=== PATIENT | female | born 1960 | race Caucasian/White ===

== ENCOUNTER 2018-07-10 18:12 | Outpatient (REF) | payer SELFPAY ==
[2018-07-10 18:51] LABS: TSH (W/Ref FT4) 27.37 uIU/mL (0.358-3.74)
[2018-07-10 19:26] LABS: FREE T4 1.05 ng/dL (0.76-1.46)
== END 2018-07-10 18:32 ==
LOC: NCHCN 18:12
PROVIDERS: PCP Family Medicine; Visit Provider Family Medicine
DX: E03.9 Hypothyroidism, unspecified (principal); Z85.850 Personal history of malignant neoplasm of thyroid
CPT/HCPCS: 84439; 84443

== ENCOUNTER 2019-07-11 16:16 | Outpatient (REF) | payer SELFPAY ==
[2019-07-11 19:44] LABS: Hemoglobin A1C 6.2 % (3.8-5.6)
[2019-07-11 19:54] LABS: Anion Gap 8.3 mmol/L (3-11); BUN 17 mg/dL (7-18); CO2 30.7 mmol/L (21.0-32.0); CREATININE 0.88 mg/dL (0.55-1.02); Calcium 8.7 mg/dL (8.5-10.1); Chloride 105 mmol/L (98-107); Glucose 90 mg/dL (74-106); Potassium 3.9 mmol/L (3.5-5.1); Sodium 144 mmol/L (136-145); TSH (W/Ref FT4) 3.68 uIU/mL (0.36-3.74)
== END 2019-07-11 16:36 ==
LOC: NCHCN 16:16
PROVIDERS: PCP Family Medicine; Visit Provider Family Medicine
DX: E03.9 Hypothyroidism, unspecified (principal); I10 Essential (primary) hypertension
CPT/HCPCS: 80048; 83036; 84443

== ENCOUNTER 2020-07-17 16:03 | Outpatient (REF) | payer SELFPAY ==
[2020-07-17 16:05] LABS: Hemoglobin A1C 5.8 % (<5.7)
[2020-07-17 16:28] LABS: BUN 16 mg/dL (7-18); CREATININE 0.8 mg/dL (0.55-1.02); Calcium 8.3 mg/dL (8.5-10.1); Chloride 103 mmol/L (98-107); Glucose 105 mg/dL (74-106); Potassium 3.9 mmol/L (3.5-5.1); Sodium 140 mmol/L (136-145); TSH (W/Ref FT4) 0.14 uIU/mL (0.36-3.74)
[2020-07-17 16:56] LABS: FREE T4 1.84 ng/dL (0.76-1.46)
== END 2020-07-17 16:04 | disposition home or self-care (01) ==
LOC: NCHCN 16:03
PROVIDERS: PCP Family Medicine; Visit Provider Family Medicine
DX: E03.9 Hypothyroidism, unspecified (principal); I10 Essential (primary) hypertension; Z13.1 Encounter for screening for diabetes mellitus
CPT/HCPCS: 80048; 83036; 84439; 84443

== ENCOUNTER 2020-09-29 15:23 | Outpatient (REF) | payer SELFPAY ==
[2020-09-29 19:35] LABS: TSH (W/Ref FT4) 9.13 uIU/mL (0.36-3.74)
[2020-09-29 20:11] LABS: FREE T4 0.82 ng/dL (0.76-1.46)
== END 2020-09-29 15:24 | disposition home or self-care (01) ==
LOC: NCHCN 15:23
PROVIDERS: PCP Family Medicine; Visit Provider Family Medicine
DX: E03.9 Hypothyroidism, unspecified (principal)
CPT/HCPCS: 84439; 84443

== ENCOUNTER 2022-08-12 09:45 | Outpatient (REF) | payer BC, SELFPAY ==
--- NOTE | 2022-08-12 08:15 | PAPFT_PTH ---
PATIENT: Petra Seay I LOC: [facility]#:[id number] AGE/SX: 62/F ROOM: RE08/12/[address]: Elly Tong : 1960 BED: DIS: 08/12/2022 SPEC #: [id number] RECD: 08/12/22 18:09 STATUS: GERALD REChris #: [id number] APARNA: 08/12/22 08:[address]: Elly Tong DEPT: [facility] Cytology RECD BY: Noy Aquino Tissues: 1 - CX/ENDOCX FOR PAP SMEARS Procedures: PAP THIN PREP/UVM Screening HPV DNA PROBE Comments: [id number]
[2022-08-13 10:27] LABS: Hemoglobin A1C 6.1 % (<5.7)
[2022-08-13 10:33] LABS: ALT 43 U/L (14-59); AST 32 U/L (15-37); Albumin 4.3 g/dL (3.4-5.0); Alkaline Phosphatase 87 U/L (46-116); Anion Gap 7.7 mmol/L (3-11); BUN 18 mg/dL (7-18); Bilirubin, Total 1.4 mg/dL (0.2-1.0); CO2 31.3 mmol/L (21.0-32.0); CREATININE 1.1 mg/dL (0.55-1.02); Calcium 7.8 mg/dL (8.5-10.1); Calculated LDL 223 mg/dL (<100); Chloride 102 mmol/L (98-107); Cholesterol 315 mg/dL (<200); Estimated GFR 57.52 (mL/min/1.73m2); Glucose 108 mg/dL (74-106); HDL Cholesterol 65 mg/dL (40-60); Potassium 3.7 mmol/L (3.5-5.1); Sodium 141 mmol/L (136-145); TSH (W/Ref FT4) 37.74 uIU/mL (0.36-3.74); Total Protein 7.9 g/dL (6.4-8.2); Triglyceride 137 mg/dL (<150)
[2022-08-13 11:01] LABS: FREE T4 2.07 ng/dL (0.76-1.46)
[2022-08-13 20:41] LABS: Thyroglobulin Antibody 16 U/mL (<=60)
== END 2022-08-12 09:46 | disposition home or self-care (01) ==
LOC: NCHCN 09:45
PROVIDERS: PCP Family Medicine; Visit Provider Family Medicine
DX: E03.9 Hypothyroidism, unspecified (principal); Z85.850 Personal history of malignant neoplasm of thyroid; E55.9 Vitamin D deficiency, unspecified; I10 Essential (primary) hypertension; R73.03 Prediabetes; Z12.4 Encounter for screening for malignant neoplasm of cervix; Z11.51 Encounter for screening for human papillomavirus (HPV)
CPT/HCPCS: 80053; 80061; 82306; 88142; 83036; 84439; 84443; 86800; 87624

== ENCOUNTER 2022-08-27 01:06 | Outpatient (CLI) | payer BC, SELFPAY ==
--- NOTE | 2022-08-27 12:30 | DI.RAD_ITS ---
Exam(s) XR ANKLE LT COMPLETE EXAM: XR ANKLE LT COMPLETE CLINICAL HISTORY: LT ANKLE JT PAIN, M25.572 TECHNIQUE: 2D digital imaging was performed. Three views. COMPARISON: CR RIGHT ANKLE COMPLETE from 05/22/2013 FINDINGS: BONES: No acute fracture is present. No bony destructive lesion is seen. JOINTS:Narrowing of the to the tibial talar joint space. Prominent spur from the medial malleolus. Mild spurring talofibular joint. SOFT TISSUE: Mild swelling. IMPRESSION: Degenerative changes at the ankle joint. DATA REPOSITORY: RADIATION DOSE DELIVERED:
--- NOTE | 2022-08-27 12:45 | DI.MAMMO_ITS ---
Exam(s) MAMMO SCREENING EXAM: MAMMO SCREENING 2012 through 2018 CLINICAL HISTORY: SCREENING, Z12.31 TECHNIQUE: Mammograms were interpreted according to the usual protocol including computer analysis w ith CAD system, tomosynthesis and C-view imaging. COMPARISON: 2012 through 2017 FINDINGS: The breasts are composed of scattered fibroglandular densities, Breast Density category B. No suspicious masses or suspicious microcalcifications are seen. No skin thickening or abnormal axillary lymph nodes are seen. There has been no significant change from prior exams. IMPRESSION: BI-RADS Category 1, Negative mammogram Yearly screening mammography is recommended. Breast Density - Category B, scattered fibroglandular densities. A negative radiographic report should not delay biopsy if a dominant or clinically suspicious mass is present. Up to ten percent of cancers are not identified on mammography. A negative report may reinforce clinical impression. Adenosis and dense breasts may obscure an underlying neoplasm. False positive reports average 6 to 10%. Patient will receive a letter notifying them of these results.
== END 2022-08-27 01:26 ==
PROVIDERS: PCP Family Medicine; Visit Provider Family Medicine
DX: Z12.31 Encounter for screening mammogram for malignant neoplasm of breast (principal); M25.572 Pain in left ankle and joints of left foot; M77.52 Other enthesopathy of left foot and ankle; M19.072 Primary osteoarthritis, left ankle and foot
CPT/HCPCS: 77063; 77067; 73610

== ENCOUNTER 2022-11-03 10:54 | Outpatient (REF) | payer BC, SELFPAY ==
[2022-11-03 17:00] LABS: Anion Gap 11.7 mmol/L (3-11); BUN 14 mg/dL (7-18); CO2 25.3 mmol/L (21.0-32.0); CREATININE 0.7 mg/dL (0.55-1.02); Calcium 8.6 mg/dL (8.5-10.1); Chloride 105 mmol/L (98-107); Estimated GFR 98.95 (mL/min/1.73m2); Glucose 123 mg/dL (74-106); Potassium 3.8 mmol/L (3.5-5.1); Sodium 142 mmol/L (136-145); TSH (W/Ref FT4) 0.01 uIU/mL (0.36-3.74)
[2022-11-03 17:08] LABS: Vitamin D 25 Total 53.6 ng/mL (30-100)
[2022-11-03 17:17] LABS: FREE T4 2.67 ng/dL (0.76-1.46)
== END 2022-11-03 10:55 | disposition home or self-care (01) ==
LOC: NCHCN 10:54
PROVIDERS: PCP Family Medicine; Visit Provider Family Medicine
DX: I10 Essential (primary) hypertension (principal); E03.9 Hypothyroidism, unspecified; E83.51 Hypocalcemia; E55.9 Vitamin D deficiency, unspecified
CPT/HCPCS: 80048; 82306; 82088; 84100; 84244; 84439; 84443

== ENCOUNTER 2023-01-12 12:56 | Outpatient (REF) | payer BC, SELFPAY ==
[2023-01-12 16:25] LABS: AST 16 U/L (15-37); Anion Gap 12.2 mmol/L (3-11); BUN 18 mg/dL (7-18); CO2 25.8 mmol/L (21.0-32.0); CREATININE 0.8 mg/dL (0.55-1.02); Calculated LDL 76 mg/dL (<100); Chloride 106 mmol/L (98-107); Cholesterol 157 mg/dL (<200); Glucose 98 mg/dL (74-106); HDL Cholesterol 51 mg/dL (40-60); Potassium 4.4 mmol/L (3.5-5.1); Sodium 144 mmol/L (136-145); Triglyceride 150 mg/dL (<150)
[2023-01-12 16:57] LABS: TSH (W/Ref FT4) < 0.01 uIU/mL (0.36-3.74)
[2023-01-12 18:17] LABS: Vitamin D 25 Total 34.5 ng/mL (30-100)
== END 2023-01-12 12:57 | disposition home or self-care (01) ==
LOC: NCHCN 12:56
PROVIDERS: PCP Family Medicine; Visit Provider Family Medicine
DX: E78.5 Hyperlipidemia, unspecified (principal); I10 Essential (primary) hypertension; E55.9 Vitamin D deficiency, unspecified; E03.9 Hypothyroidism, unspecified; Z79.899 Other long term (current) drug therapy
CPT/HCPCS: 80048; 80061; 82306; 84439; 84443; 84450

== ENCOUNTER 2023-08-17 16:33 | Outpatient (REF) | payer BC, SELFPAY ==
[2023-08-17 19:32] LABS: Hemoglobin A1C 6.2 % (<5.7)
[2023-08-17 19:42] LABS: Anion Gap 10.8 mmol/L (3-11); BUN 18 mg/dL (7-18); CO2 29.2 mmol/L (21.0-32.0); CREATININE 1.1 mg/dL (0.55-1.02); Calcium 8.9 mg/dL (8.5-10.1); Chloride 100 mmol/L (98-107); Estimated GFR 57.17 (mL/min/1.73m2); FREE T4 1.53 ng/dL (0.76-1.46); Glucose 89 mg/dL (74-106); Potassium 4.3 mmol/L (3.5-5.1); Sodium 140 mmol/L (136-145)
[2023-08-17 20:16] LABS: Vitamin D 25 Total 21.8 ng/mL (30-100)
[2023-08-18 17:48] LABS: Thyroglobulin Antibody <15 U/mL (<=60)
== END 2023-08-17 16:34 | disposition home or self-care (01) ==
LOC: NCHCN 16:33
PROVIDERS: PCP Family Medicine; Visit Provider Family Medicine
DX: I10 Essential (primary) hypertension (principal); Z13.1 Encounter for screening for diabetes mellitus; E55.9 Vitamin D deficiency, unspecified
CPT/HCPCS: 80048; 82306; 83036; 84432; 84439; 84443; 86800

== ENCOUNTER 2023-09-18 13:32 | Emergency (ER) | payer BC, SELFPAY ==
[2023-09-18 13:46] VITALS: BP 155/88; PULSE 83; RESP 16; TEMP 36.6; O2SAT 94
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
[2023-09-18 15:09] LABS: *AMPHETAMINES SCREEN URINE Negative (Negative); *BARBITURATES SCREEN URINE Negative (Negative); *BENZODIAZEPINES SCREEN URINE Negative (Negative); Cannabinoids THC Negative (Negative); Cocaine Screen,Urine Negative (Negative); METHADONE URINE SCREEN Negative (Negative); OPIATES URINE SCREEN Negative (Negative)
[2023-09-18 15:13] LABS: Tricyclic Antidepressants Negative (Negative)
[2023-09-18 15:48] LABS: Abs Immature Grans 0.04 10^3/uL (0.0-0.06); Absolute Basophil Count 0.07 10^3/uL (0.0-0.2); Absolute Monocyte Count 0.72 10^3/uL (0.1-0.8); Absolute Neutrophil Count 5.43 10^3/uL (1.2-6.7); Basophils % 0.9; Eosinophils % 1.3; HCT 42.8 % (36.0-46.0); HGB 14.5 g/dL (11.2-15.7); Immature Grans % 0.5; Lymphocytes % 19.1; MCH 28.7 pg (27.0-33.0); MCHC 33.9 % (32.0-36.0); MCV 85 fL (80-95); MPV 9.3 fL (8.0-11.0); Monocytes % 9.2; Platelet Count 373 10^3/uL (130-400); RBC 5.05 10^6/uL (3.93-5.22); RDW 12.4 % (11.7-14.6); RDW-SD 38.3 fL; WBC 7.86 10^3/uL (4.4-10.8)
[2023-09-18 15:56] LABS: Chloride 103 mmol/L (98-107); Potassium 4.3 mmol/L (3.5-5.1); Sodium 140 mmol/L (136-145)
[2023-09-18 16:15] LABS: ALT 48 U/L (14-59); AST 24 U/L (15-37); Albumin 3.9 g/dL (3.4-5.0); Alkaline Phosphatase 73 U/L (46-116); Anion Gap 10.9 mmol/L (3-11); BUN 18 mg/dL (7-18); Bilirubin, Total 1.5 mg/dL (0.2-1.0); CO2 26.1 mmol/L (21.0-32.0); CREATININE 0.9 mg/dL (0.55-1.02); Calcium 8.4 mg/dL (8.5-10.1); Estimated GFR 72.73 (mL/min/1.73m2); Glucose 107 mg/dL (74-106); TSH (W/Ref FT4) 0.08 uIU/mL (0.36-3.74); Total Protein 7.5 g/dL (6.4-8.2)
[2023-09-18 16:33] LABS: FREE T4 2.24 ng/dL (0.76-1.46)
[2023-09-18 16:42] LABS: Bilirubin Negative (Negative); Blood Negative (Negative); Clarity Clear (Clear); Glucose Negative (Negative); Ketones Negative (Negative); Leukocyte Esterase Negative (Negative); Nitrite Negative (Negative); Urobilinogen 0.2 mg/dL (Up to 0.2)
[2023-09-18 16:48] VITALS: BP 155/88; PULSE 83; RESP 16; TEMP 36.6; O2SAT 94
[2023-09-18] MEDS: Cephalexin 500 MG CAP PO (16:48)
== END 2023-09-18 16:53 | disposition home or self-care (01) ==
PROVIDERS: Emergency Provider Emergency Medicine; PCP Family Medicine
DX: R45.851 Suicidal ideations (principal); S71.112A Laceration without foreign body, left thigh, initial encounter; S71.111A Laceration without foreign body, right thigh, initial encounter; F32.A Depression, unspecified; I10 Essential (primary) hypertension; X78.1XXA Intentional self-harm by knife, initial encounter
CPT/HCPCS: 12002; 36415; 80053; 80307; 99284; 73700; 81003; 84439; 84443; 85025

== ENCOUNTER 2024-02-06 13:15 | Outpatient (REF) | payer BC, SELFPAY ==
[2024-02-06 19:34] LABS: TSH (W/Ref FT4) < 0.01 uIU/mL (0.36-3.74)
[2024-02-06 20:01] LABS: FREE T4 2.07 ng/dL (0.76-1.46)
== END 2024-02-06 13:16 | disposition home or self-care (01) ==
LOC: NCHCN 13:15
PROVIDERS: PCP Family Medicine; Visit Provider Family Medicine
DX: E03.9 Hypothyroidism, unspecified (principal)
CPT/HCPCS: 84439; 84443

== ENCOUNTER 2024-04-25 15:16 | Outpatient (REF) | payer BC, SELFPAY ==
[2024-04-25 19:51] LABS: HCT 43.6 % (36.0-46.0); HGB 14.5 g/dL (11.2-15.7); MCH 28.6 pg (27.0-33.0); MCHC 33.3 % (32.0-36.0); MCV 86 fL (80-95); MPV 10.1 fL (8.0-11.0); Platelet Count 304 10^3/uL (130-400); RBC 5.07 10^6/uL (3.93-5.22); RDW 13.2 % (11.7-14.6); RDW-SD 40.9 fL; WBC 7.02 10^3/uL (4.4-10.8)
[2024-04-25 20:09] LABS: Hemoglobin A1C 6.1 % (<5.7)
[2024-04-25 20:12] LABS: Anion Gap 11.3 mmol/L (3-11); BUN 17 mg/dL (7-18); CO2 26.7 mmol/L (21.0-32.0); CREATININE 1.1 mg/dL (0.55-1.02); Calcium 8.5 mg/dL (8.5-10.1); Chloride 104 mmol/L (98-107); Estimated GFR 56.81 (mL/min/1.73m2); Glucose 100 mg/dL (74-106); Potassium 3.9 mmol/L (3.5-5.1); Sodium 142 mmol/L (136-145); TSH (W/Ref FT4) 4.05 uIU/mL (0.36-3.74)
[2024-04-25 20:31] LABS: FREE T4 1.85 ng/dL (0.76-1.46)
== END 2024-04-25 15:17 | disposition home or self-care (01) ==
LOC: NCHCN 15:16
PROVIDERS: PCP Family Medicine; Visit Provider Family Medicine
DX: Z01.818 Encounter for other preprocedural examination (principal); E03.9 Hypothyroidism, unspecified; R73.03 Prediabetes
CPT/HCPCS: 80048; 85027; 83036; 84439; 84443

== ENCOUNTER 2024-08-22 15:06 | Outpatient (REF) | payer BC, SELFPAY ==
[2024-08-22 20:02] LABS: Hemoglobin A1C 5.6 % (<5.7)
[2024-08-22 20:12] LABS: Anion Gap 12.4 mmol/L (3-11); BUN 17 mg/dL (7-18); CO2 25.6 mmol/L (21.0-32.0); CREATININE 1.2 mg/dL (0.55-1.02); Chloride 105 mmol/L (98-107); Estimated GFR 51.18 (mL/min/1.73m2); Glucose 102 mg/dL (74-106); Potassium 4.3 mmol/L (3.5-5.1); Sodium 143 mmol/L (136-145); TSH 0.07 uIU/mL (0.36-3.74)
[2024-08-23 20:15] LABS: T4, Free 2.3 ng/dL (0.8-2.2)
== END 2024-08-22 15:07 | disposition home or self-care (01) ==
LOC: NCHCN 15:06
PROVIDERS: PCP Family Medicine; Visit Provider Family Medicine
DX: R73.03 Prediabetes (principal); E03.9 Hypothyroidism, unspecified; I10 Essential (primary) hypertension
CPT/HCPCS: 80048; 83036; 84439; 84443; 87070

== ENCOUNTER 2024-11-05 15:07 | Outpatient (REF) | payer BC, SELFPAY ==
[2024-11-05 18:40] LABS: FREE T4 1.51 ng/dL (0.76-1.46); TSH 1.62 uIU/mL (0.36-3.74)
== END 2024-11-05 15:08 | disposition home or self-care (01) ==
LOC: NCHCN 15:07
PROVIDERS: PCP Family Medicine; Visit Provider Family Medicine
DX: E03.9 Hypothyroidism, unspecified (principal)
CPT/HCPCS: 84439; 84443

== ENCOUNTER 2025-01-17 06:11 | Day surgery (SDC) | payer BC, SELFPAY ==
[2025-01-17 06:34] VITALS: BP 134/96; PULSE 81; RESP 18; TEMP 36.5; O2SAT 97
[2025-01-17] MEDS: Lactated Ringers 1,000 ML 80 ML IV (06:45)
--- NOTE | 2025-01-17 06:46 | W.ANESPRE ---
General Info Date of Service Date Performed: 01/17/25 Height: 5 ft 2 in Weight: 69.1 kg Body Mass Index (BMI): 27.8 Surgical Procedure: Operation Date: 01/17/25 07:35 Proposed Procedure Side Surgeon varun Díaz MD Meds Allergies and Home Medications Allergies Allergy/AdvReac Type Severity Reaction Status Date / Time IV CONTRAST Allergy Severe Anaphylaxsi Uncoded 01/17/25 06:22 s Home Medication ?Medication ?Instructions ?Recorded multivitamin 1 tab PO DAILY 09/15/22 spironolactone 25 mg tablet 25 mg PO QAM 09/18/23 lisinopril 20 mg tablet 40 mg PO DAILY 02/02/24 levothyroxine 112 mcg capsule 112 mcg PO DAILY 10/03/24 rosuvastatin 20 mg tablet 20 mg PO DAILY 10/03/24 semaglutide (weight loss) 1.7 1.7 mg subcut QWEEK 10/03/24 mg/0.75 mL subcutaneous pen injector (Wegovy) bisacodyl 5 mg tablet,delayed 5 mg PO ONCE #4 tabs 12/13/24 release (Dulcolax (bisacodyl)) polyethylene glycol 3350 17 17 g PO ONCE #238 grams 12/13/24 gram/dose oral powder Current Visit Medications: Current Medications Generic Name Dose Route Start Last Admin Trade Name Freq PRN Reason Stop Dose Admin Ringer's Solution 1,000 mls @ 80 mls/hr 01/17/25 06:00 01/17/25 06:45 IV 01/17/25 23:59 80 mls/hr INFUSION EULOGIO Administration IV Miscellaneous Supplies 1 each 01/17/25 06:00 Iv Access IV 01/17/25 23:59 DIRECTED EULOGIO Sodium Chloride 0 ml 01/17/25 06:00 Normal Saline Flush 10 Ml Syr IV 01/17/25 23:59 PRN PRN Sodium Chloride 0 ml 01/17/25 06:00 Normal Saline 10 Ml Vial IJ 01/17/25 23:59 DIRECTED PRN Sterile Water 0 ml 01/17/25 06:00 Water,Injection,Sterile 10 Ml Vial IJ 01/17/25 23:59 DIRECTED PRN PFSH Active Problems Active Problems: Problem Status Onset Code Hypothyroidism Chronic E03.9 Vitamin D deficiency Acute E55.9 Hypertension Chronic I10 Prediabetes Acute R73.03 Ankle joint pain Acute M25.579 Macromastia Acute N62 Snoring Acute R06.83 Obesity Chronic E66.9 Medical History Medical History Anxiety Sarcoidosis Tubular adenoma (~10/24/12) Thyroid cancer (07/11/14) Surgical History Surgical History History of radical neck dissection (~07/2003) History of laminectomy (~12/2003) H/O reduction mammoplasty (~12/2022) History of colonoscopy with polypectomy (~10/24/12) Tobacco Smoking/Tobacco Use Status: Never Alcohol Alcohol Intake: current Alcohol intake frequency: holidays/special occasions only Substance Use Substance use: Never Vital Signs and Lab Results Vital Signs Most Recent Vital Signs in EMR: Most Recent Vital Signs Temp Pulse Resp BP Pulse Ox 36.5 C 81 18 134/96 H 97 01/17/25 06:34 01/17/25 06:34 01/17/25 06:34 01/17/25 06:34 01/17/25 06:34 Anesthesia Assessment and Plan Anesthesia History Personal History: No History of Anesthesia Complications Family History: No Family History of Anesthesia Complications Exercise Tolerance Exercise Tolerance: Metabolic Equivalents>4 Pertinent Negatives Pertinent Negatives: No Symptoms of GERD Cardiac & Pulmonary Exam Cardiac Exam: Normal S1/S2 Heart Sounds Pulmonary Exam: Clear Bilateral Breath Sounds Implantable Cardiac Device Does patient have a Pacemaker or an ICD?: No Airway Exam Known Difficult Airway: No Mallampati Class: 3 Mouth Opening: Normal (> 3cm) Thyromental Distance: Greater than 3 cm Neck Range of Motion: Full ROM Neck Circumference: Normal Teeth Condition: Normal Dentition Airway Comments: Concern related to multiple neck surgeries, on assessment supple and good ROM. ASA Classification ASA Score: ASA 3 Emergency Case?: No NPO Status NPO Status: NPO Clears >2 hours, Solids >8 hours Anesthesia Plan Resuscitation Status: Full Code Anesthesia Technique: General Anesthesia Airway Planned: Natural Airway Monitors Used: Standard Monitors
--- NOTE | 2025-01-17 06:58 | W.PM.HP.N ---
Date of service: 01/17/25 Time of Service: 06:58 Assessment and Plan Assessment and plan (1) Encounter for colonoscopy due to history of colonic polyp: Status: Acute Assessment and plan: proceed w scheduled colonoscopy. Discussed colonoscopy procedure risks, benefits, alternatives and expectations. consent obtained. History of Present Illness History of Present Illness Chief Complaint: 64yo F here for colonoscopy for history of adenoma polyp. Narrative: Last colonoscopy 2012 with one adenoma removed. she denies symptoms such as abd pain on regular basis, unplanned weight loss, change in bowel habits or anemia. no known first degree relatives w crc. no IBD. no ovarian or uterine cancer. Review of Systems All systems reviewed & are unremarkable except as noted in HPI and below PFSH All Active Problems (Updated 01/17/25 @ 07:00 by Mireya Díaz MD) Encounter for colonoscopy due to history of colonic polyp (Acute) Hypothyroidism (Chronic) Vitamin D deficiency (Acute) Hypertension (Chronic) Prediabetes (Acute) Ankle joint pain (Acute) Macromastia (Acute) Snoring (Acute) Obesity (Chronic) Medical History Anxiety Sarcoidosis Tubular adenoma (~10/24/12) Thyroid cancer (07/11/14) Surgical History History of radical neck dissection (~07/2003) History of laminectomy (~12/2003) H/O reduction mammoplasty (~12/2022) History of colonoscopy with polypectomy (~10/24/12) Social History Smoking/Tobacco Use Status: Never Smoking risk assessment performed?: Yes Alcohol Intake: current Alcohol Intake frequency: holidays/special occasions only Drug use: Never Housing: house Do you feel safe at home: Yes Meds Allergies and Home Medications Allergies Allergy/AdvReac Type Severity Reaction Status Date / Time IV CONTRAST Allergy Severe Anaphylaxsi Uncoded 01/17/25 06:22 s Home Medications ?Medication ?Instructions ?Recorded ?Confirmed ?Type multivitamin 1 tab PO DAILY 09/15/22 01/17/25 History spironolactone 25 mg tablet 25 mg PO QAM 09/18/23 01/17/25 History lisinopril 20 mg tablet 40 mg PO DAILY 02/02/24 01/17/25 History levothyroxine 112 mcg capsule 112 mcg PO DAILY 10/03/24 01/17/25 History rosuvastatin 20 mg tablet 20 mg PO DAILY 10/03/24 01/17/25 History semaglutide (weight loss) 1.7 1.7 mg subcut QWEEK 10/03/24 01/17/25 History mg/0.75 mL subcutaneous pen injector (Wegovy) bisacodyl 5 mg tablet,delayed 5 mg PO ONCE #4 tabs 12/13/24 12/13/24 Rx release (Dulcolax (bisacodyl)) polyethylene glycol 3350 17 17 g PO ONCE #238 grams 12/13/24 12/13/24 Rx gram/dose oral powder Exam Narrative Exam Narrative: awake, NAD eomi, MMM midline trachea, neck is symmetric PULM: normal resp effort, equal chest rise with respiration, no wheezing audible. CTA B CARDIAC: normal PMI, no jvd, regular rate, normal perfusion. RRR abdomen is nondistended. extremities are without deformity, normal movement of all four extremities speech is clear and coherent mood and affect are congruent, no focal neurological deficits skin without rash Results Last Vital Signs Temp 97.7 F 01/17/25 06:34 Pulse 81 01/17/25 06:34 Resp 18 01/17/25 06:34 BP 134/96 H 01/17/25 06:34 Pulse Ox 97 01/17/25 06:34 Time Spent Time spent with Patient: <40 minutes Time was spent: preparing to see the patient(eg.review tests), referring, communicating with other health health care facility administrator and counseling the patient
[2025-01-17 07:09] VITALS: BMI 27.8
--- NOTE | 2025-01-17 07:48 | BOWEL_PTH ---
PATIENT: Petra Seay I LOC: [facility] U#:[id number] AGE/SX: 64/F ROOM: RE01/17/[address]: Mireya Díaz MD : 1960 BED: DIS: 01/17/2025 SPEC #: [id number] RECD: 01/17/25 12:43 STATUS: GERALD REQ #: [id number] APARNA: 01/17/25 07:[address]: Mireya Díaz DEPT: Surgical Specimen RECD BY: Noy Aquino ENTERED: 01/17/25 12:44 SP TYPE: Bowel OTHR DR: Elly Tong Tissues: 1 - BIOPSY BOWEL 2 - BIOPSY BOWEL Procedures: GROSS AND MICRO LEVEL 4 Comments: [id number]
[2025-01-17 08:04] VITALS: BP 115/82; PULSE 77; RESP 12; TEMP 36.1; O2SAT 95
--- NOTE | 2025-01-17 08:08 | W.COLOREPORT ---
Date of service: 01/17/25 Time of Service: 08:08 Colonoscopy Report Procedure Description: Date of procedure: 01/17/25 Pre-op diagnosis general: screening, remote history of polyps >10y ago Post-op diagnosis procedure note: same (1. ascending colon polyp. 2. descending colon polyp. ) Procedure: colonoscopy with cold forceps polypectomy x2 Surgeon: Mireya Díaz Anesthesia Type: General:No Airway Estimated blood loss (mL): 5 Pathology: other (1. ascending colon polyp. 2. descending colon polyp) Complications: None Disposition: same day Indications: screening for colorectal cancer Prep: Miralax/Dulcolax (Excellent) Procedure Description: Informed consent was obtained and the patient was taken to the procedure area. The patient was placed in left lateral decubitus position on the procedure table. Timeout was performed. Anesthesia was induced. A lubricated colonoscope was inserted through the anus and passed to the cecum. The cecum was identified by the ileocecal valve and the appendiceal orifice. The scope was then slowly withdrawn and the colonic and rectal mucosa examined. ascending colon polyp 5mm sessile excised piecemeal with cold forceps. descending colon polyp 8mm sessile excised piecemeal with cold forceps. No diverticulosis was seen. The scope was retroflexed in the anorectal junction examined. Uncomplicated internal hemorrhoids present. Assessment and plan; Two polyps <1cm with classic adenoma appearance. Next colonoscopy will be due in 5 years.
--- NOTE | 2025-01-17 08:09 | W.PM.DSUDISC ---
Date of service: 01/17/25 Discharge Plan Disposition Patient Disposition: Home Condition: Stable Discharge Details Attending Provider: Mireya Díaz Primary Care Provider: Elly Tong Recommendations for Follow Up Recommended tests to be ordered by follow up provider: Next colonoscopy due in 5 years Home Meds and New Rx's Prescriptions: Continued multivitamin Tablet 1 tab PO DAILY lisinopril 20 mg tablet 40 mg PO DAILY levothyroxine 112 mcg capsule 112 mcg PO DAILY rosuvastatin 20 mg tablet 20 mg PO DAILY Wegovy 1.7 mg/0.75 mL pen injector 1.7 mg subcut QWEEK Rx Instructions: administer weeks 13 through 16 of therapy spironolactone 25 mg tablet 25 mg PO QAM Discontinued bisacodyl [Dulcolax (bisacodyl)] 5 mg tablet,delayed release (DR/EC) 5 mg PO ONCE Qty: 4 0RF Rx Instructions: Take per colonoscopy instructions provided by ordering providers office polyethylene glycol 3350 17 gram/dose powder 17 g PO ONCE Qty: 238 0RF Rx Instructions: Take per colonoscopy instructions provided by ordering providers office Discharge Instructions Additional Instructions: Healthy colon with two polyps seen and removed. Next colonoscopy due in 5 years. Stand Alone Forms: Anesthesia Discharge Inst., Colonoscopy Post Instructions, Grazyna Pantoja (DSU) Activity:: Activity as Tolerated Diet:: As Tolerated Discharge Orders Discharge Orders: Discharge Order (Routine); Ordered 01/17/25 Ordered By: Mireya Díaz Discharge Data Discharge Date/Time-TO BE ENTERED AT DEPARTURE: 01/17/25 08:44 Discharge Comment: DC to home DS: Diagnosis Discharge Diagnosis (1) Encounter for colonoscopy due to history of colonic polyp: Status: Deleted (2) Screening for colorectal cancer: Status: Acute (3) Polyp of ascending colon: Status: Acute (4) Polyp of descending colon: Status: Acute
[2025-01-17 08:32] VITALS: PULSE 76; RESP 14; TEMP 36.2; O2SAT 97
--- NOTE | 2025-01-17 08:54 | W.ANESPOSTOP ---
Postoperative Evaluation Date, Time and Location Date Performed: 01/17/25 Time Performed: 08:54 Patient Location: Day [facility] Unit Vital Signs Most Recent Imported Vital Signs: Most Recent Vital Signs Temp Pulse Resp BP Pulse Ox 36.2 C L 76 14 115/82 97 01/17/25 08:32 01/17/25 08:32 01/17/25 08:32 01/17/25 08:04 01/17/25 08:32 Pain Score Most Recent Pain Score: Most Recent Pain Score Pain Level 0 01/17/25 08:32 Assessment Mental Status: Awake (Alert & Oriented to Patient Baseline) Airway and Respiratory Function: Patent airway with normal (patient baseline) respiratory exam Cardiovascular Function: Hemodynamically Stable Hydration Status: Adequately Hydrated Nausea & Vomiting: No Nausea or Vomiting Pain: Pt. Denies Any Pain Peripheral Nerve Block: Patient did not receive a nerve block
== END 2025-01-17 08:44 | disposition home or self-care (01) ==
PROVIDERS: PCP Family Medicine; Visit Provider Surgery
PROC: 0DJD8ZZ Inspection of Lower Intestinal Tract, Via Natural or Artificial Opening Endoscopic (ICD-10-PCS; CPT 45378; principal; 2025-01-17 07:30)
DX: Z12.11 Encounter for screening for malignant neoplasm of colon (principal); Z12.12 Encounter for screening for malignant neoplasm of rectum; D12.4 Benign neoplasm of descending colon; D12.2 Benign neoplasm of ascending colon
CPT/HCPCS: 45380; 88305; J2704

== ENCOUNTER 2025-03-11 11:04 | Outpatient (REF) | payer BC, SELFPAY ==
[2025-03-11 15:56] LABS: Anion Gap 9.1 mmol/L (3-11); BUN 10 mg/dL (7-18); CO2 29.9 mmol/L (21.0-32.0); Calcium 8.5 mg/dL (8.5-10.1); Chloride 103 mmol/L (98-107); Estimated GFR 63.30 (mL/min/1.73m2); Glucose 105 mg/dL (74-106); Potassium 3.9 mmol/L (3.5-5.1); Sodium 142 mmol/L (136-145)
== END 2025-03-11 11:05 | disposition home or self-care (01) ==
LOC: NCHCN 11:04
PROVIDERS: PCP Family Medicine; Visit Provider Family Medicine
DX: I10 Essential (primary) hypertension (principal)
CPT/HCPCS: 80048